=== PATIENT | female | born 1970 | race Caucasian/White ===

== ENCOUNTER 2018-03-26 21:26 | Emergency (ER) | payer SELFPAY ==
[~2018-03-26] VITALS: Ht 157.5 cm; Wt 74.0 kg
[2018-03-27] MEDS ORDERED: HYDROCODONE/ACETAMINOPHEN 5/325MG TABLET PO ONE (00:45)
[2018-03-27] MEDS ORDERED: LORAZEPAM 1MG TABLET PO ONE (00:45)
[2018-03-27 01:03] LABS: EOSINOPHILS % 2.9 % (0.0-5.0); HEMATOCRIT. 35.7 % (36.0-48.0); HEMOGLOBIN. 11.7 g/dL (12.0-16.0); LYMPHOCYTES % 37.5 % (20.0-50.0); MEAN CORPUSCULAR HEMOGLOBIN 23.7 pg (28.0-32.0); MEAN CORPUSCULAR VOLUME 72.4 fL (81.0-99.0); MEAN PLATELET VOLUME 7.5 fl (7.4-10.4); MONOCYTES % 11.4 % (2.0-8.0); NEUTROPHILS % 47.2 % (40.0-76.0); PLATELET 374 x1000/uL (130-400); RED BLOOD CELL COUNT 4.92 mill/uL (4.2-5.4); RED CELL DISTRIBUTION WIDTH 18.9 % (11.6-14.6)
[2018-03-27 01:10] LABS: CHLORIDE 108 mEq/L (98-107)
[2018-03-27 03:00] VITALS: BP 118/72
[2018-03-27 03:21] LABS: HCG SCREEN NEGATIVE
== END 2018-03-27 04:05 | disposition left against medical advice (07) ==
LOC: ER 21:26
DX: R07.9 Chest pain, unspecified (principal); R10.9 Unspecified abdominal pain; R42 Dizziness and giddiness; E11.9 Type 2 diabetes mellitus without complications; I10 Essential (primary) hypertension; G43.909 Migraine, unspecified, not intractable, without status migrainosus; Z88.6 Allergy status to analgesic agent
CPT/HCPCS: 36415; 71045; 80048; 81025; 84484; 84703; 85025; 93005; 99285

== ENCOUNTER 2018-04-12 06:34 | Emergency (ER) | payer MEDICAID ==
[~2018-04-12] VITALS: Ht 157.5 cm; Wt 76.5 kg
[2018-04-12] MEDS ORDERED: ASPIRIN 81MG TABLET PO ONE (07:15)
[2018-04-12] MEDS ORDERED: HYDROCODONE/ACETAMINOPHEN 5/325MG TABLET PO ONE (07:15)
[2018-04-12 07:46] LABS: BASOPHILS % 0.6 % (0.0-2.0); HEMATOCRIT. 32.1 % (36.0-48.0); HEMOGLOBIN. 10.4 g/dL (12.0-16.0); LYMPHOCYTES % 29.1 % (20.0-50.0); MEAN CORPUSCULAR HEMOGLOBIN 23.7 pg (28.0-32.0); MEAN PLATELET VOLUME 7.2 fl (7.4-10.4); MONOCYTES % 9.3 % (2.0-8.0); PLATELET 340 x1000/uL (130-400); RED CELL DISTRIBUTION WIDTH 19.2 % (11.6-14.6)
[2018-04-12 07:48] LABS: INR 0.9; PARTIAL THROMBOPLASTIN TIME 24.7 sec (23.4-31.0); PROTHROMBIN TIME 9.4 sec (9.1-11.1)
[2018-04-12 07:51] LABS: CHLORIDE 106 mEq/L (98-107)
[2018-04-12 08:00] LABS: HCG SCREEN NEGATIVE
[2018-04-12] MEDS ORDERED: DIPHENHYDRAMINE 25MG CAPSULE PO ONE (08:45)
[2018-04-12] MEDS ORDERED: METOCLOPRAMIDE HCL 10MG/2ML VIAL IV ONE (08:45)
[2018-04-12 09:49] VITALS: BP 119/65
== END 2018-04-12 10:11 | disposition home or self-care (01) ==
LOC: ER 06:34 → CANBEDREQ 08:39 → ER 10:11
DX: R07.9 Chest pain, unspecified (principal); I10 Essential (primary) hypertension; E11.9 Type 2 diabetes mellitus without complications; R51 Headache; D64.9 Anemia, unspecified; Z88.6 Allergy status to analgesic agent
CPT/HCPCS: 36415; 71045; 80053; 83880; 84484; 84703; 85025; 85610; 85730; 93005; 96374; 99285; J2765; J7030; Q0163

== ENCOUNTER 2018-04-23 19:16 | Emergency (ER) | payer MEDICAID ==
[~2018-04-23] VITALS: Ht 157.5 cm; Wt 77.0 kg
[2018-04-23 19:27] VITALS: BP 147/82
== END 2018-04-23 22:10 | disposition left against medical advice (07) ==
LOC: ER 20:31
DX: R07.9 Chest pain, unspecified (principal); Z53.21 Procedure and treatment not carried out due to patient leaving prior to being seen by health care provider
CPT/HCPCS: 93005

== ENCOUNTER 2018-10-07 16:58 | Emergency (ER) | payer MEDICAID ==
[~2018-10-07] VITALS: Ht 157.5 cm; Wt 72.0 kg
[2018-10-07 19:14] VITALS: BP 146/94
== END 2018-10-07 20:00 | disposition left against medical advice (07) ==
LOC: ER 17:03
DX: Z53.21 Procedure and treatment not carried out due to patient leaving prior to being seen by health care provider (principal); E11.9 Type 2 diabetes mellitus without complications; E78.00 Pure hypercholesterolemia, unspecified; I10 Essential (primary) hypertension; Z86.711 Personal history of pulmonary embolism
CPT/HCPCS: 93005

== ENCOUNTER 2019-03-15 20:41 | Emergency (ER) | payer MEDICAID ==
[~2019-03-15] VITALS: Ht 157.5 cm; Wt 76.0 kg
[2019-03-15] MEDS ORDERED: MORPHINE SULFATE 4 MG/ML CPJ (NOT FOR IM USE) IV STA (23:03)
[2019-03-15] MEDS ORDERED: ONDANSETRON HCL 4MG/2ML INJ IV STA (23:03)
[2019-03-15] MEDS ORDERED: SODIUM CHLORIDE 0.9% 1,000 ML IV ONE (23:03)
[2019-03-15] MEDS ORDERED: DIPHENHYDRAMINE 50MG/ML VIAL IV ONE (23:15)
[2019-03-15 23:39] LABS: EOSINOPHILS % 1.9 % (0.0-5.0); HEMATOCRIT. 37.4 % (36.0-48.0); HEMOGLOBIN. 12.5 g/dL (12.0-16.0); LYMPHOCYTES % 27.7 % (20.0-50.0); MEAN CORPUSCULAR HEMOGLOBIN 26.7 pg (28.0-32.0); MEAN CORPUSCULAR VOLUME 79.9 fL (81.0-99.0); MEAN PLATELET VOLUME 7.4 fl (7.4-10.4); MONOCYTES % 8.4 % (2.0-8.0); PLATELET 285 x1000/uL (130-400); RED BLOOD CELL COUNT 4.68 mill/uL (4.2-5.4); RED CELL DISTRIBUTION WIDTH 18.2 % (11.6-14.6)
[2019-03-15 23:45] LABS: CHLORIDE 107 mEq/L (98-107)
[2019-03-16 00:56] LABS: CLARITY URINE CLOUDY (CLEAR); COLOR URINE YELLOW (YELLOW); KETONES URINE NEGATIVE (NEGATIVE); LEUKOCYTE ESTERASE URINE TRACE (NEGATIVE); NITRITE URINE NEGATIVE (NEGATIVE); OCCULT BLOOD URINE NEGATIVE (NEGATIVE); PROTEIN URINE NEGATIVE (NEGATIVE); SPECIFIC GRAVITY URINE 1.013 (1.005-1.030); UROBILINOGEN URINE 0.2 E.U./dL (0.2-1.0)
[2019-03-16 01:08] LABS: *AMPHETAMINES SCREEN URINE NEGATIVE (NEGATIVE); CANNABINOID URINE SCREEN NEGATIVE (NEGATIVE); METHADONE URINE SCREEN NEGATIVE (NEGATIVE); PHENCYCLIDINE URINE SCREEN NEGATIVE (NEGATIVE)
[2019-03-16 01:09] LABS: *BARBITURATES SCREEN URINE NEGATIVE (NEGATIVE); *COCAINE SCREEN URINE NEGATIVE (NEGATIVE)
[2019-03-16 01:14] LABS: *BENZODIAZEPINES SCREEN URINE PRESUMTIVE POSITIVE (NEGATIVE); OPIATES URINE SCREEN PRESUMTIVE POSITIVE (NEGATIVE)
[2019-03-16 03:56] VITALS: BP 112/58
== END 2019-03-16 04:24 | disposition home or self-care (01) ==
LOC: ER 20:41
DX: G89.29 Other chronic pain (principal); R10.9 Unspecified abdominal pain; R07.9 Chest pain, unspecified; E11.9 Type 2 diabetes mellitus without complications; E78.00 Pure hypercholesterolemia, unspecified; I10 Essential (primary) hypertension; F17.290 Nicotine dependence, other tobacco product, uncomplicated; Z88.6 Allergy status to analgesic agent; Z98.890 Other specified postprocedural states; Z91.041 Radiographic dye allergy status
CPT/HCPCS: 36415; 71045; 74176; 80053; 80305; 81003; 81025; 83880; 84484; 85025; 93005; 96374; 96375; 99284; 99406; J1200; J2270; J2405; J7030

== ENCOUNTER 2019-03-24 14:01 | Emergency (ER) | payer MEDICAID ==
[~2019-03-24] VITALS: Ht 152.4 cm; Wt 100.0 kg
[2019-03-24] MEDS ORDERED: ONDANSETRON HCL 4MG/2ML INJ IV STA (15:46)
[2019-03-24] MEDS ORDERED: SODIUM CHLORIDE 0.9% 1,000 ML IV ONE (15:46)
[2019-03-24] MEDS ORDERED: MORPHINE SULFATE 4 MG/ML CPJ (NOT FOR IM USE) IV STA (15:46)
[2019-03-24 16:07] LABS: BASOPHILS % 0.7 % (0.0-2.0); HEMATOCRIT. 38.8 % (36.0-48.0); LYMPHOCYTES % 31.7 % (20.0-50.0); MEAN CORPUSCULAR VOLUME 80.2 fL (81.0-99.0); MEAN PLATELET VOLUME 7.1 fl (7.4-10.4); MONOCYTES % 8.8 % (2.0-8.0); NEUTROPHILS % 56.8 % (40.0-76.0); PLATELET 333 x1000/uL (130-400); RED BLOOD CELL COUNT 4.83 mill/uL (4.2-5.4); RED CELL DISTRIBUTION WIDTH 17.9 % (11.6-14.6)
[2019-03-24 16:12] LABS: CHLORIDE 107 mEq/L (98-107)
[2019-03-24 16:17] LABS: CLARITY URINE CLEAR (CLEAR); COLOR URINE YELLOW (YELLOW); KETONES URINE NEGATIVE (NEGATIVE); LEUKOCYTE ESTERASE URINE NEGATIVE (NEGATIVE); NITRITE URINE NEGATIVE (NEGATIVE); OCCULT BLOOD URINE NEGATIVE (NEGATIVE); PH URINE 5.5 (4.5-8.0); PROTEIN URINE NEGATIVE (NEGATIVE); SPECIFIC GRAVITY URINE 1.004 (1.005-1.030); UROBILINOGEN URINE 0.2 E.U./dL (0.2-1.0)
[2019-03-24] MEDS ORDERED: SODIUM CHLORIDE 0.9% 1000ML BAG (SEPSIS BOLUS) IV ONE (16:45)
[2019-03-24 18:50] VITALS: BP 121/69
== END 2019-03-24 18:54 | disposition home or self-care (01) ==
LOC: ER 14:01
DX: R10.9 Unspecified abdominal pain (principal); N83.201 Unspecified ovarian cyst, right side; F41.9 Anxiety disorder, unspecified; E86.0 Dehydration; E11.9 Type 2 diabetes mellitus without complications; E78.00 Pure hypercholesterolemia, unspecified; I10 Essential (primary) hypertension; Z88.6 Allergy status to analgesic agent; Z86.73 Personal history of transient ischemic attack (TIA), and cerebral infarction without residual deficits
CPT/HCPCS: 36415; 76830; 76856; 80053; 81003; 81025; 83605; 83690; 85025; 85610; 93005; 96361; 96374; 96375; 99284; J2270; J2405; J7030

== ENCOUNTER 2019-05-16 21:05 | Emergency (ER) | payer MEDICAID ==
[~2019-05-16] VITALS: Ht 157.5 cm; Wt 77.0 kg
[2019-05-17] MEDS ORDERED: TRAMADOL 50MG TABLET PO ONE (01:00)
[2019-05-17 01:05] VITALS: BP 128/72
== END 2019-05-17 02:12 | disposition left against medical advice (07) ==
LOC: ER 21:05
DX: Z53.21 Procedure and treatment not carried out due to patient leaving prior to being seen by health care provider (principal)
CPT/HCPCS: 93005

== ENCOUNTER 2019-07-15 21:28 | Emergency (ER) | payer MEDICAID ==
[~2019-07-15] VITALS: Ht 157.5 cm; Wt 79.0 kg
[2019-07-15] MEDS ORDERED: SODIUM CHLORIDE 0.9% 1,000 ML IV ONE (22:21)
[2019-07-15] MEDS ORDERED: LORAZEPAM 2MG/ML CPJ IV ONE (22:30)
[2019-07-15 23:09] LABS: HEMATOCRIT. 40.1 % (36.0-48.0); HEMOGLOBIN. 13.6 g/dL (12.0-16.0); MEAN CORPUSCULAR HEMOGLOBIN 28.7 pg (28.0-32.0); MEAN CORPUSCULAR VOLUME 84.7 fL (81.0-99.0); MEAN PLATELET VOLUME 7.3 fl (7.4-10.4); PLATELET 314 x1000/uL (130-400); RED BLOOD CELL COUNT 4.74 mill/uL (4.2-5.4); RED CELL DISTRIBUTION WIDTH 15.3 % (11.6-14.6)
[2019-07-15 23:16] LABS: CHLORIDE 104 mEq/L (98-107)
[2019-07-15 23:20] LABS: ETHANOL BLOOD < 10 mg/dL; PLATELET ESTIMATE NORMAL
[2019-07-15 23:30] LABS: CLARITY URINE CLEAR (CLEAR); COLOR URINE YELLOW (YELLOW); KETONES URINE 1+ (NEGATIVE); LEUKOCYTE ESTERASE URINE TRACE (NEGATIVE); NITRITE URINE NEGATIVE (NEGATIVE); OCCULT BLOOD URINE 1+ (NEGATIVE); PROTEIN URINE NEGATIVE (NEGATIVE); SPECIFIC GRAVITY URINE 1.028 (1.005-1.030); UROBILINOGEN URINE 0.2 E.U./dL (0.2-1.0)
[2019-07-15 23:38] LABS: CANNABINOID URINE SCREEN NEGATIVE (NEGATIVE); PHENCYCLIDINE URINE SCREEN NEGATIVE (NEGATIVE)
[2019-07-15 23:39] LABS: *AMPHETAMINES SCREEN URINE NEGATIVE (NEGATIVE); *BARBITURATES SCREEN URINE NEGATIVE (NEGATIVE); *BENZODIAZEPINES SCREEN URINE NEGATIVE (NEGATIVE); *COCAINE SCREEN URINE NEGATIVE (NEGATIVE); METHADONE URINE SCREEN NEGATIVE (NEGATIVE)
[2019-07-15] MEDS ORDERED: ACETAMINOPHEN WITH CODEINE 300/30MG TABLET PO STA (23:53)
[2019-07-16 00:14] LABS: OPIATES URINE SCREEN PRESUMTIVE POSITIVE (NEGATIVE)
[2019-07-16] MEDS ORDERED: ACETAMINOPHEN WITH CODEINE 300/30MG TABLET PO ONE (02:00)
[2019-07-16 02:42] VITALS: BP 119/69
== END 2019-07-16 02:45 | disposition home or self-care (01) ==
LOC: ER 22:18
DX: R07.89 Other chest pain (principal); M79.18 Myalgia, other site; F41.9 Anxiety disorder, unspecified; F32.9 Major depressive disorder, single episode, unspecified; E11.9 Type 2 diabetes mellitus without complications; I10 Essential (primary) hypertension; G51.0 Bell's palsy; Z98.890 Other specified postprocedural states; Z88.6 Allergy status to analgesic agent
CPT/HCPCS: 36415; 71045; 74176; 80053; 80305; 80320; 81003; 81025; 82962; 84484; 85025; 93005; 96374; 99284; J2060; J7030; Z7610; G0480

== ENCOUNTER 2019-09-03 18:00 | Emergency (ER) | payer MEDICAID ==
[~2019-09-03] VITALS: Ht 157.5 cm; Wt 79.0 kg
[2019-09-03 21:47] LABS: BASOPHILS % 0.4 % (0.0-2.0); EOSINOPHILS % 0.2 % (0.0-5.0); HEMOGLOBIN. 14.5 g/dL (12.0-16.0); LYMPHOCYTES % 13.8 % (20.0-50.0); MEAN CORPUSCULAR HEMOGLOBIN 28.6 pg (28.0-32.0); MEAN CORPUSCULAR VOLUME 84.8 fL (81.0-99.0); MEAN PLATELET VOLUME 7.2 fl (7.4-10.4); MONOCYTES % 5.6 % (2.0-8.0); PLATELET 287 x1000/uL (130-400); RED BLOOD CELL COUNT 5.07 mill/uL (4.2-5.4); RED CELL DISTRIBUTION WIDTH 16.7 % (11.6-14.6)
[2019-09-03 21:50] LABS: CHLORIDE 104 mEq/L (98-107)
[2019-09-03 22:20] LABS: HCG SCREEN NEGATIVE
[2019-09-03] MEDS ORDERED: ONDANSETRON HCL 4MG/2ML INJ IV STA (22:20)
[2019-09-03] MEDS ORDERED: SODIUM CHLORIDE 0.9% 1,000 ML IV ONE (22:20)
[2019-09-03] MEDS ORDERED: MORPHINE SULFATE 4 MG/ML CPJ (NOT FOR IM USE) IV STA (22:20)
[2019-09-03 23:01] LABS: CREATINE KINASE 32 IU/L (26-192); CREATINE KINASE MB FRACTION < 1.0 ng/mL (0.5-3.6)
[2019-09-04] MEDS ORDERED: MORPHINE SULFATE 4 MG/ML CPJ (NOT FOR IM USE) IV ONE (01:30)
[2019-09-04] MEDS ORDERED: ONDANSETRON HCL 4MG/2ML INJ IV ONE (01:30)
[2019-09-04] MEDS ORDERED: METHYLPREDNISOLONE SOD SUCC 125 MG/2 ML VIAL IV ONE (01:30)
[2019-09-04 02:00] VITALS: BP 107/50
== END 2019-09-04 02:55 | disposition home or self-care (01) ==
LOC: ER 18:00
DX: G89.29 Other chronic pain (principal); R07.9 Chest pain, unspecified; G35 Multiple sclerosis; F41.9 Anxiety disorder, unspecified; F32.9 Major depressive disorder, single episode, unspecified; E11.9 Type 2 diabetes mellitus without complications; I11.9 Hypertensive heart disease without heart failure; Z88.6 Allergy status to analgesic agent
CPT/HCPCS: 36415; 71045; 80053; 81025; 82550; 82553; 82962; 83880; 84443; 84484; 84703; 85025; 93005; 96361; 96374; 96375; 96376; 99284; J2270; J2405; J2930; J7030

== ENCOUNTER 2019-09-14 09:28 | Emergency (ER) | payer MEDICAID, OTHER ==
[~2019-09-14] VITALS: Ht 157.5 cm; Wt 77.0 kg
[2019-09-14] MEDS ORDERED: METF-414 PO (09:43)
[2019-09-14] MEDS ORDERED: ATOR10TA PO (09:43)
[2019-09-14] MEDS ORDERED: MORPHINE SULFATE 4 MG/ML CPJ (NOT FOR IM USE) IV STA (11:17)
[2019-09-14] MEDS ORDERED: ONDANSETRON HCL 4MG/2ML INJ IV STA (11:17)
[2019-09-14 11:47] LABS: BASOPHILS % 0.4 % (0.0-2.0); EOSINOPHILS % 1.1 % (0.0-5.0); HEMATOCRIT. 39.3 % (36.0-48.0); HEMOGLOBIN. 13.2 g/dL (12.0-16.0); LYMPHOCYTES % 12.7 % (20.0-50.0); MEAN CORPUSCULAR HEMOGLOBIN 28.7 pg (28.0-32.0); MEAN CORPUSCULAR VOLUME 85.6 fL (81.0-99.0); MONOCYTES % 2.7 % (2.0-8.0); NEUTROPHILS % 83.1 % (40.0-76.0); PLATELET 372 x1000/uL (130-400); RED BLOOD CELL COUNT 4.59 mill/uL (4.2-5.4); RED CELL DISTRIBUTION WIDTH 16.9 % (11.6-14.6)
[2019-09-14 11:53] LABS: CHLORIDE 109 mEq/L (98-107)
[2019-09-14 12:04] LABS: HCG SCREEN NEGATIVE
[2019-09-14 16:08] VITALS: BP 134/74
[2019-09-14] MEDS ORDERED: CLONIDINE 0.1MG TABLET PO PRN (16:45)
[2019-09-14] MEDS ORDERED: DOCUSATE SODIUM 100MG CAPSULE PO PRN (16:45)
[2019-09-14] MEDS ORDERED: MORPHINE SULFATE 2 MG/ML CPJ (NOT FOR IM USE) IV PRN (16:45)
[2019-09-14] MEDS ORDERED: IPRATROPIUM/ALBUTEROL 0.5-3(2.5)MG/3ML NEB NEB PRN (16:45)
[2019-09-14] MEDS ORDERED: DIPHENHYDRAMINE 50MG/ML VIAL IV PRN (16:45)
[2019-09-14] MEDS ORDERED: HYDROCODONE/ACETAMINOPHEN 10/325MG TABLET PO PRN (16:45)
[2019-09-14] MEDS ORDERED: ONDANSETRON HCL 4MG/2ML INJ IV PRN (16:45)
[2019-09-14] MEDS ORDERED: LORAZEPAM 2MG/ML CPJ IV PRN (16:45)
[2019-09-14] MEDS ORDERED: HYDRALAZINE 20MG/ML VIAL IV PRN (16:45)
[2019-09-14] MEDS ORDERED: NA PHOS,M-B/NA PHOS,DI-BA ENEMA 118ML PR PRN (16:45)
[2019-09-14] MEDS ORDERED: DEXTROSE 50% WATER 50ML SYRINGE IV PRN (16:45)
[2019-09-14] MEDS ORDERED: GUAIFENESIN 200MG/10ML SUGAR FREE UDC PO PRN (16:45)
[2019-09-14] MEDS ORDERED: ENOXAPARIN 40MG/0.4ML SYR SUBCUT SCH (16:45)
[2019-09-14] MEDS ORDERED: ACETAMINOPHEN 325MG TABLET PO PRN (16:45)
[2019-09-14] MEDS ORDERED: MAGNESIUM/ALUMINUM HYDROXIDE/SIMETHICONE 30ML UDC PO PRN (16:45)
[2019-09-14] MEDS ORDERED: BLOOD SUGAR DIAGNOSTIC STRIP TEST SCH (17:00)
[2019-09-14] MEDS ORDERED: INSULIN LISPRO 100 UNITS/ML SUBCUT SCH (18:20)
[2019-09-14] MEDS ORDERED: METOPROLOL TARTRATE 25MG TABLET PO SCH (21:00)
[2019-09-14] MEDS ORDERED: SODIUM CHLORIDE 0.9% INJ 3ML FLUSH IVF SCH (22:00)
== END 2019-09-14 16:59 | disposition left against medical advice (07) ==
LOC: ER 09:28 → EDBEDREQ 14:48 → ER 16:59 → CANBEDREQ 18:41
DX: R07.89 Other chest pain (principal); E11.9 Type 2 diabetes mellitus without complications; I11.9 Hypertensive heart disease without heart failure; G35 Multiple sclerosis; I25.10 Atherosclerotic heart disease of native coronary artery without angina pectoris; R10.32 Left lower quadrant pain; R06.02 Shortness of breath; R51 Headache; Z88.6 Allergy status to analgesic agent; Z86.73 Personal history of transient ischemic attack (TIA), and cerebral infarction without residual deficits
CPT/HCPCS: 36415; 70450; 71045; 80053; 84484; 84703; 85025; 93005; 96374; 96375; 99284; J2270; J2405; Z7610

== ENCOUNTER 2019-09-17 14:04 | Emergency (ER) | payer OTHER ==
[~2019-09-17] VITALS: Ht 165.1 cm; Wt 85.0 kg
[~2019-09-17 14:04] MED LIST: ATOR10TA PO; METF-414 PO
[2019-09-17 14:45] VITALS: BP 141/106
== END 2019-09-17 17:54 | disposition left against medical advice (07) ==
LOC: ER 14:04
DX: R07.89 Other chest pain (principal); Z53.21 Procedure and treatment not carried out due to patient leaving prior to being seen by health care provider

== ENCOUNTER 2019-09-24 10:26 | Emergency (ER) | payer MEDICAID, OTHER ==
[~2019-09-24] VITALS: Ht 157.5 cm; Wt 79.0 kg
[2019-09-24 11:43] VITALS: BP 134/89
== END 2019-09-24 14:41 | disposition left against medical advice (07) ==
LOC: ER 10:26
DX: R10.9 Unspecified abdominal pain (principal); R11.2 Nausea with vomiting, unspecified; R19.7 Diarrhea, unspecified
CPT/HCPCS: 80305; 81003; 93005; 99283

== ENCOUNTER 2019-10-21 22:41 | Emergency (ER) | payer MEDICAID, OTHER ==
[~2019-10-21] VITALS: Ht 157.5 cm; Wt 79.0 kg
[2019-10-22] MEDS ORDERED: ACETAMINOPHEN 325MG TABLET PO ONE (01:00)
[2019-10-22 01:04] LABS: BASOPHILS % 0.5 % (0.0-2.0); EOSINOPHILS % 3.7 % (0.0-5.0); HEMATOCRIT. 36.1 % (36.0-48.0); HEMOGLOBIN. 12.3 g/dL (12.0-16.0); LYMPHOCYTES % 39.8 % (20.0-50.0); MEAN CORPUSCULAR VOLUME 84.7 fL (81.0-99.0); MEAN PLATELET VOLUME 6.7 fl (7.4-10.4); MONOCYTES % 7.8 % (2.0-8.0); NEUTROPHILS % 48.2 % (40.0-76.0); PLATELET 449 x1000/uL (130-400); RED BLOOD CELL COUNT 4.26 mill/uL (4.2-5.4); RED CELL DISTRIBUTION WIDTH 16.8 % (11.6-14.6)
[2019-10-22 01:08] LABS: CHLORIDE 109 mEq/L (98-107); INR 0.9
[2019-10-22] MEDS ORDERED: ONDANSETRON HCL 4MG/2ML INJ IV ONE (01:15)
[2019-10-22 02:13] LABS: CLARITY URINE CLEAR (CLEAR); COLOR URINE YELLOW (YELLOW); KETONES URINE NEGATIVE (NEGATIVE); LEUKOCYTE ESTERASE URINE NEGATIVE (NEGATIVE); NITRITE URINE NEGATIVE (NEGATIVE); OCCULT BLOOD URINE NEGATIVE (NEGATIVE); PROTEIN URINE NEGATIVE (NEGATIVE); SPECIFIC GRAVITY URINE 1.022 (1.005-1.030); UROBILINOGEN URINE 0.2 E.U./dL (0.2-1.0)
[2019-10-22 02:30] VITALS: BP 106/73
[2019-10-22] MEDS ORDERED: CYCLOBENZAPRINE 10MG TABLET PO ONE (02:30)
== END 2019-10-22 03:31 | disposition home or self-care (01) ==
LOC: ER 22:41
DX: M79.10 Myalgia, unspecified site (principal); R51 Headache; R07.9 Chest pain, unspecified; J40 Bronchitis, not specified as acute or chronic; R00.2 Palpitations; R00.0 Tachycardia, unspecified; I11.9 Hypertensive heart disease without heart failure; E11.9 Type 2 diabetes mellitus without complications; G35 Multiple sclerosis; Z86.73 Personal history of transient ischemic attack (TIA), and cerebral infarction without residual deficits; Z88.6 Allergy status to analgesic agent; Z79.899 Other long term (current) drug therapy
CPT/HCPCS: 36415; 70450; 71045; 80053; 81003; 81025; 83880; 84484; 85025; 85379; 85610; 85730; 87804; 93005; 96374; 99285; J2405

== ENCOUNTER 2019-11-03 21:41 | Emergency (ER) | payer OTHER ==
[~2019-11-03] VITALS: Ht 157.5 cm; Wt 80.0 kg
[2019-11-03 22:26] VITALS: BP 105/49
== END 2019-11-03 23:31 | disposition left against medical advice (07) ==
LOC: ER 21:41
DX: R56.9 Unspecified convulsions (principal); R07.9 Chest pain, unspecified; R00.0 Tachycardia, unspecified; M54.9 Dorsalgia, unspecified; E78.00 Pure hypercholesterolemia, unspecified; I10 Essential (primary) hypertension; E11.9 Type 2 diabetes mellitus without complications; G35 Multiple sclerosis; Z86.73 Personal history of transient ischemic attack (TIA), and cerebral infarction without residual deficits; Z98.890 Other specified postprocedural states; Z88.6 Allergy status to analgesic agent; Z79.899 Other long term (current) drug therapy
CPT/HCPCS: 93005; 99283

== ENCOUNTER 2019-11-23 22:46 | Emergency (ER) | payer OTHER ==
[~2019-11-23] VITALS: Ht 157.5 cm; Wt 81.0 kg
[2019-11-24] MEDS ORDERED: DIPHENHYDRAMINE 50MG/ML VIAL IV ONE ×2 (00:15→01:30)
[2019-11-24 00:46] LABS: BASOPHILS % 0.3 % (0.0-2.0); EOSINOPHILS % 0.1 % (0.0-5.0); HEMATOCRIT. 38.5 % (36.0-48.0); HEMOGLOBIN. 13.1 g/dL (12.0-16.0); LYMPHOCYTES % 11.2 % (20.0-50.0); MEAN CORPUSCULAR HEMOGLOBIN 28.6 pg (28.0-32.0); MEAN CORPUSCULAR VOLUME 84.2 fL (81.0-99.0); MEAN PLATELET VOLUME 7.2 fl (7.4-10.4); MONOCYTES % 2.4 % (2.0-8.0); PLATELET 365 x1000/uL (130-400); RED BLOOD CELL COUNT 4.58 mill/uL (4.2-5.4); RED CELL DISTRIBUTION WIDTH 17.1 % (11.6-14.6)
[2019-11-24 00:53] LABS: CHLORIDE 102 mEq/L (98-107)
[2019-11-24] MEDS ORDERED: SODIUM CHLORIDE 0.9% 1,000 ML IV ONE (01:15)
[2019-11-24 03:00] VITALS: BP 117/76
[2019-11-24] MEDS ORDERED: IOHEXOL-350 100 ML BOTTLE ONE (03:04)
== END 2019-11-24 03:20 | disposition left against medical advice (07) ==
LOC: ER 22:46
DX: R07.89 Other chest pain (principal); E87.2 Acidosis; E11.9 Type 2 diabetes mellitus without complications; E78.00 Pure hypercholesterolemia, unspecified; I10 Essential (primary) hypertension; G40.909 Epilepsy, unspecified, not intractable, without status epilepticus; Z86.73 Personal history of transient ischemic attack (TIA), and cerebral infarction without residual deficits; Z79.84 Long term (current) use of oral hypoglycemic drugs; Z86.711 Personal history of pulmonary embolism; Z79.01 Long term (current) use of anticoagulants; Z88.8 Allergy status to other drugs, medicaments and biological substances; Z91.041 Radiographic dye allergy status
CPT/HCPCS: 36415; 71045; 71275; 80053; 81025; 83605; 83880; 84484; 85025; 87040; 93005; 96374; 99285; J1200; Q9967

== ENCOUNTER 2019-11-24 22:23 | Emergency (ER) | payer MEDICAID, OTHER ==
[~2019-11-24] VITALS: Ht 157.5 cm; Wt 81.0 kg
[2019-11-25 01:34] LABS: BASOPHILS % 0.3 % (0.0-2.0); HEMATOCRIT. 37.5 % (36.0-48.0); HEMOGLOBIN. 12.6 g/dL (12.0-16.0); LYMPHOCYTES % 11.1 % (20.0-50.0); MEAN CORPUSCULAR HEMOGLOBIN 28.5 pg (28.0-32.0); MEAN CORPUSCULAR VOLUME 84.9 fL (81.0-99.0); MEAN PLATELET VOLUME 7.2 fl (7.4-10.4); MONOCYTES % 2.2 % (2.0-8.0); NEUTROPHILS % 86.4 % (40.0-76.0); PLATELET 380 x1000/uL (130-400); RED BLOOD CELL COUNT 4.42 mill/uL (4.2-5.4); RED CELL DISTRIBUTION WIDTH 17.2 % (11.6-14.6)
[2019-11-25 01:38] LABS: CHLORIDE 107 mEq/L (98-107)
[2019-11-25 02:00] VITALS: BP 125/84
[2019-11-25] MEDS ORDERED: ACETAMINOPHEN 500MG TABLET PO NR (02:00)
== END 2019-11-25 02:01 | disposition home or self-care (01) ==
LOC: ER 22:23
DX: R07.89 Other chest pain (principal); E87.2 Acidosis; Z76.5 Malingerer [conscious simulation]; I10 Essential (primary) hypertension; E11.9 Type 2 diabetes mellitus without complications; E78.00 Pure hypercholesterolemia, unspecified; Z86.711 Personal history of pulmonary embolism; G40.909 Epilepsy, unspecified, not intractable, without status epilepticus; Z79.01 Long term (current) use of anticoagulants; Z79.84 Long term (current) use of oral hypoglycemic drugs; Z86.73 Personal history of transient ischemic attack (TIA), and cerebral infarction without residual deficits; Z88.8 Allergy status to other drugs, medicaments and biological substances
CPT/HCPCS: 36415; 80053; 83605; 83880; 84484; 85025; 93005; 99284

== ENCOUNTER 2020-02-07 23:57 | Emergency (ER) | payer MEDICAID, OTHER ==
[~2020-02-07] VITALS: Ht 157.5 cm; Wt 82.0 kg
[2020-02-08 01:33] VITALS: BP 119/69
[2020-02-08] MEDS ORDERED: ACETAMINOPHEN 325MG TABLET PO ONE (02:45)
== END 2020-02-08 03:31 | disposition left against medical advice (07) ==
LOC: ER 23:57
DX: M25.561 Pain in right knee (principal); R51 Headache; R07.89 Other chest pain; E11.9 Type 2 diabetes mellitus without complications; E78.00 Pure hypercholesterolemia, unspecified; I10 Essential (primary) hypertension; Z86.73 Personal history of transient ischemic attack (TIA), and cerebral infarction without residual deficits; Z88.6 Allergy status to analgesic agent
CPT/HCPCS: 71045; 73502; 73562; 93005; 99284

== ENCOUNTER 2020-03-17 22:27 | Emergency (ER) | payer MEDICAID ==
[~2020-03-17] VITALS: Ht 157.5 cm; Wt 82.0 kg
[~2020-03-17 22:27] MED LIST changes: +DIVA500T3 MT; +FERR325T6 MT; +METO25TA6 MT; +NITR-87 MT; +TEMA30CA5 MT
[2020-03-17] MEDS ORDERED: KETOROLAC 30MG/ML VIAL IV STA (23:07)
[2020-03-17] MEDS ORDERED: SODIUM CHLORIDE 0.9% 1,000 ML IV ONE (23:07)
[2020-03-17] MEDS ORDERED: LORAZEPAM 2MG/ML CPJ IV ONE (23:15)
[2020-03-17 23:47] LABS: CHLORIDE 103 mEq/L (98-107)
[2020-03-17 23:48] LABS: CLARITY URINE CLEAR (CLEAR); COLOR URINE DARK YELLOW (YELLOW); KETONES URINE 1+ (NEGATIVE); LEUKOCYTE ESTERASE URINE 1+ (NEGATIVE); NITRITE URINE NEGATIVE (NEGATIVE); OCCULT BLOOD URINE NEGATIVE (NEGATIVE); PH URINE 5.5 (4.5-8.0); PROTEIN URINE TRACE (NEGATIVE); SPECIFIC GRAVITY URINE 1.035 (1.005-1.030)
[2020-03-17 23:51] LABS: INR 0.9
[2020-03-17 23:52] LABS: ETHANOL BLOOD < 10 mg/dL
[2020-03-17 23:58] LABS: BASOPHILS % 0.5 % (0.0-2.0); EOSINOPHILS % 0.8 % (0.0-5.0); HEMATOCRIT. 36.2 % (36.0-48.0); LYMPHOCYTES % 18.7 % (20.0-50.0); MEAN CORPUSCULAR HEMOGLOBIN 24.9 pg (28.0-32.0); MEAN CORPUSCULAR VOLUME 75.5 fL (81.0-99.0); MEAN PLATELET VOLUME 7.6 fl (7.4-10.4); MONOCYTES % 7.5 % (2.0-8.0); NEUTROPHILS % 72.5 % (40.0-76.0); PLATELET 384 x1000/uL (130-400); RED CELL DISTRIBUTION WIDTH 22.1 % (11.6-14.6)
[2020-03-18 00:11] LABS: HCG SCREEN NEGATIVE
[2020-03-18] MEDS ORDERED: ACETAMINOPHEN 160MG/5ML UDC PO ONE (00:30)
[2020-03-18] MEDS ORDERED: LORAZEPAM 2MG/ML CPJ IV ONE (00:30)
[2020-03-18 00:41] LABS: PLATELET ESTIMATE NORMAL
[2020-03-18 01:25] VITALS: BP 125/71
== END 2020-03-18 01:26 | disposition home or self-care (01) ==
LOC: ER 22:27
DX: R10.13 Epigastric pain (principal); N30.00 Acute cystitis without hematuria; E11.9 Type 2 diabetes mellitus without complications; I10 Essential (primary) hypertension; Z86.711 Personal history of pulmonary embolism; Z79.01 Long term (current) use of anticoagulants; Z79.84 Long term (current) use of oral hypoglycemic drugs; Z90.79 Acquired absence of other genital organ(s); Z88.8 Allergy status to other drugs, medicaments and biological substances; Z91.041 Radiographic dye allergy status
CPT/HCPCS: 36415; 71045; 74176; 80053; 80320; 81003; 81025; 83690; 84703; 85025; 85610; 93005; 96361; 96374; 99285; J1885; J2060; J7030; G0480